=== PATIENT | female | born 1995 | race Caucasian/White ===

== ENCOUNTER 2017-01-18 22:35 | Emergency (ER) | payer OTHER ==
[2017-01-18 23:54] LABS: EOS # 0.1 10_X3_uL (0.0-0.4); EOS % 1.9 % (0.7-5.8); GRAN # 3.5 10_X3_uL (1.6-6.1); HEMOGLOBIN 12.5 g/dL (11.2-15.7); MEAN CORPUSCULAR HEMOGLOBIN 30.4 pg (27.0-33.0); MEAN CORPUSCULAR HGB CONC 32.9 g/dL (32.0-36.0); MEAN CORPUSCULAR VOLUME 92.5 fL (79-95); MEAN PLATELET VOLUME 9.7 fl (7.5-11.5); MONO # 0.6 10_X3_uL (0.2-0.9); MONO % 11.1 % (4.7-12.5); PLATELET COUNT 252 x10_3/uL (182-369); RED BLOOD COUNT 4.11 x10_6/uL (3.9-5.2); RED CELL DISTRIBUTION WIDTH 11.9 % (11.7-14.4); WHITE BLOOD COUNT 5.2 x10_3/uL (4.0-10.0)
[2017-01-19 00:09] LABS: ALBUMIN 4.1 gm/dL (3.4-5.0); ALKALINE PHOSPHATASE 44 U/L (50-136); ALT/SGPT 58 U/L (3.5-33.9); AST/SGOT 45 U/L (7.04-26.96); BILIRUBIN,TOTAL 0.54 mg/dL (0.0-1.0); BLOOD UREA NITROGEN 14 mg/dL (7-18); CALCIUM 8.8 mg/dL (8.7-10.7); CARBON DIOXIDE 24 mmol/L (21-32); CREATININE < 0.5 mg/dL (0.6-1.3); GLUCOSE,RANDOM 84 mg/dL (70-99); POTASSIUM 3.5 mmol/L (3.5-5.1); SODIUM 138 mmol/L (136-145); TOTAL PROTEIN 7.1 gm/dL (6.4-8.2)
[2017-01-19 00:11] LABS: URINE BILIRUBIN NEGATIVE (NEGATIVE); URINE BLOOD NEGATIVE (NEGATIVE); URINE GLUCOSE (UA) NORMAL (NORMAL); URINE KETONE 1+ (NEGATIVE); URINE LEUKOCYTE ESTERASE 2+ (NEGATIVE); URINE NITRATE NEGATIVE (NEGATIVE); URINE PROTEIN NEGATIVE (NEGATIVE)
[2017-01-19 00:12] LABS: URINE AMORPHOUS SEDIMENT 1+; URINE BACTERIA 1+ (NONE SEEN); URINE RBC 0-5 /[HPF] (0-2)
== END 2017-01-19 00:29 | disposition home or self-care (01) ==
LOC: ER 22:35
PROVIDERS: Emergency Medicine
DX: R11.2 Nausea with vomiting, unspecified (principal); R19.7 Diarrhea, unspecified; R10.84 Generalized abdominal pain; R51 Headache; M25.50 Pain in unspecified joint; F17.210 Nicotine dependence, cigarettes, uncomplicated
CPT/HCPCS: 36415; 80053; 81001; 81025; 85025; 99283; J8597